=== PATIENT | male | born 1995 | race African-American/Black ===

== ENCOUNTER 2021-05-19 19:13 | Emergency (ER) | payer OTHER, SELFPAY ==
[2021-05-19 19:16] VITALS: BP 133/74; PULSE 68; RESP 18; TEMP 36.9; O2SAT 99
--- NOTE | 2021-05-19 19:50 | ED_ITS ---
HPI - Burn/Smoke Inhalation General Chief complaint: Burn/Smoke Inhalation Stated complaint: RIGHT ARM BURNED Time Seen by Provider: 05/19/21 19:15 Source: patient Mode of arrival: Ambulatory History of Present Illness HPI Narrative: 25-year-old male smoker with noncontributory medical history presents with chief complaint of an accidental work related burn to his right arm. 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 Due to the weather he has been trying to catch a [place] here for the past 24 hours or so. He developed pain and blisters on the volar aspect of his forearm. The burn is not circumferential. He has pain but not significant. He denies any numbness, tingling or weakness of his hand. His tetanus is current. He is otherwise well and free of complaint Related Data Previous Rx's Medication Instructions Recorded hydrocodone 5 mg-acetaminophen 325 1 tab PO Q4-6H PRN #10 tab 05/19/21 mg tablet Allergies Allergy/AdvReac Type Severity Reaction Status Date / Time No Known Drug Allergies Allergy Verified 05/19/21 19:18 Review of Systems Review of Systems Narrative: GENERAL: Denies chills, fatigue, malaise, fever, sweats. HEENT: Denies sinus pain, ear pain, sore throat, difficulty swallowing, dizziness. RESPIRATORY: Denies dyspnea, cough, wheezing, hemoptysis, sputum. CARDIOVASCULAR: Denies chest pain, palpitations, orthopnea, edema, GASTROINTESTINAL: Denies nausea, vomiting, abdominal pain, diarrhea, constipation, melena. : Denies dysuria, frequency, incontinence, hematuria, urinary retention. MUSCULOSKELETAL: denies weakness, joint pain, or bony pain SKIN: See HPI NEUROLOGIC: Denies weakness, headache, numbness, change in speech, confusion, seizures, incoordination. PSYCHIATRIC: No concerning psychosocial issues. 12 point review of systems is negative except for those stated above Patient History Social History Smoking Status: Current every day smoker Smoking Status: Current every day smoker Exam Narrative Exam Narrative: GEN: AOx3 and in mild distress EYES: Pupils are equal, round, and reactive to light and accommodation. Extraoccular muscles are intact bilaterally. There is no subconjunctival hemorrhage or exudate. CHEST: Lungs are clear to auscultation bilaterally and free of wheezes, rales, or rhonchi. Heart rate is regular rhythm, there are no murmurs, clicks, rubs, or gallops. There is no chest wall tenderness. ABD: Abdomen is soft and nontender. There is no guarding or rebound. Bowel sounds are normal in all 4 quadrants. There is no mass or organomegaly. EXT: Full painless ROM of all extremities with no loss of sensation or strength. SKIN: 2% superficial partial-thickness avila on volar surface of forearm, small peripheral blisters are intact, some areas with spontaneous rupture of blisters. There is a large intact blister that will need to be on removed and debrided. Again, non circumferential. Neurovascularly intact Warm, pink, and dry. No erythema or rash Initial Vital Signs Initial Vital Signs: Vital Signs Temperature 98.4 F 05/19/21 19:16 Pulse Rate 68 05/19/21 19:16 Respiratory Rate 18 05/19/21 19:16 Blood Pressure 133/74 05/19/21 19:16 Pulse Oximetry 99 05/19/21 19:16 Course Orders Ordered: Discontinued Medications Hydrocodone Bitart/Acetaminophen (Hydrocodone/Acet 5/325 Prepack) 1 bottle MISC SEEINSTR ONE Stop: 05/19/21 20:41 Last Admin: 05/19/21 21:07 Dose: 1 bottle Documented by: MAITE Bacitracin (Bacitracin Oint 0.9 Gm Pckt) 4 applic TOP NOW ONE Stop: 05/19/21 22:21 Last Admin: 05/19/21 22:33 Dose: 4 applic Documented by: KWAN Vital Signs Vital signs: Vital Signs - 8 hr 05/19/21 19:16 Temperature 98.4 F Pulse Rate 68 Respiratory Rate 18 Blood Pressure 133/74 Pulse Oximetry 99 Discharge Plan Departure Patient Disposition: Home Clinical Impression: Superficial partial thickness burn of upper extremity Instructions: DI for Avila Activity Restrictions/Additional Instructions: *You have been diagnosed with [superficial partial-thickness burn to right forearm] *What to do: *Please continue to take your regular medications as directed. [ ] New medication prescriptions sent to your pharmacy: [ ] [ x] New medication written as a paper prescription [ ] No new medications given *Please follow up with your primary care provider in 2-3 days, call for an appointment. Let them know you were seen in the Emergency Department and that we ask that you be seen in follow up. We will electronically transmit a record of today's note if your PCP is in our system *If you do not have a primary care provider please contact the [facility] Resource line at [phone]. They will ask some questions about your medical history and help get you set up with a doctor in the community. *Return to Emergency Department if you should have any new, worsening or concerning symptoms, such as [fever greater than 101 F, shaking chills, worsening pain, persistent vomiting or other bothersome symptoms] You have been prescribed a short course of narcotic medications. These are potentially dangerous and addictive medications that should be used carefully. While on these medications you cannot drive or operate heavy machinery. Additionally, you cannot sign legal documents or perform any duties such as this. Many people get constipated on narcotic medications so it would be advisable to discuss stool softeners with the pharmacist when you waste picker your prescription. Please understand that we cannot provide further refills of narcotics or controlled substances through the ED and your pain management will need to be through your Primary Care Provider Prescriptions: New hydrocodone-acetaminophen 5-325 mg tablet 1 tab PO Q4-6H PRN (Reason: pain) Qty: 10 RF: 0 Referrals: [facility] [Outside] Stand Alone Forms: Work Release Note
[2021-05-19] MEDS: HYDROCODONE/ACET 5/325 PREPACK 1 BOTTLE MISC (21:07)
[2021-05-19] MEDS: BACITRACIN OINT 0.9 GM PCKT 4 APPLIC TOP (22:33)
== END 2021-05-19 22:33 | disposition home or self-care (01) ==
PROVIDERS: Emergency Provider Emergency Medicine
DX: T22.211A Burn of second degree of right forearm, initial encounter (principal); X12.XXXA Contact with other hot fluids, initial encounter; Y93.G3 Activity, cooking and baking; Y99.0 Civilian activity done for income or pay
CPT/HCPCS: 99282